=== PATIENT | male | born 1950 | race Caucasian/White ===

== ENCOUNTER 2016-11-30 01:50 | Inpatient (IN) | payer MEDICARE, BC ==
[2016-11-30 02:34] VITALS: BP 201/91
[2016-11-30] MEDS ORDERED: CARDIZEM30 MG PO (04:14)
[2016-11-30] MEDS ORDERED: CELEXA20 MG PO (04:14)
[2016-11-30] MEDS ORDERED: MIRALAX17 GM PO (04:17)
[2016-11-30] MEDS ORDERED: NEPHRO-VITE RX1 TAB PO (04:18)
[2016-11-30] MEDS ORDERED: COLACE100 MG PO (04:19)
[2016-11-30] MEDS ORDERED: ARANESP60 MCG/ML SC (04:22)
[2016-11-30] MEDS ORDERED: COREG 3.1253.125 MG PO (04:22)
[2016-11-30] MEDS ORDERED: ASCORBIC ACID500 MG PO (04:24)
[2016-11-30] MEDS ORDERED: PROTONIX40 MG PO (04:25)
[2016-11-30] MEDS ORDERED: HYDROCODON-ACE1 EAC7 PO (04:25)
[2016-11-30] MEDS ORDERED: DULCOLAX10 MG/SUPP RC (04:28)
[2016-11-30] MEDS ORDERED: TYLENOL ARTHRITIS PO (04:31)
[2016-11-30 06:16] LABS: BASOPHILS 0.2 % (0.0-2.0); HEMATOCRIT 37.5 % (42.0-54.0); IMMATURE GRANULOCYTES 0.4 % (0-5); LYMPHOCYTES 26.9 % (15-50); MCH 28.4 pg (26.0-34.0); MCV 88.9 fL (80.0-100.0); MEAN PLATELET VOLUME 9.5 fL (7.4-10.4); MONOCYTES 6.6 % (2-11); NEUTROPHILS 64.9 % (40-80); PLATELET COUNT 229 10x3/uL (130-400); RBC 4.22 10x6/uL (4.20-6.10); RDW 14.5 % (11.5-14.5); WBC 9.1 10x3/uL (4.8-10.8)
[2016-11-30 06:30] LABS: HEMOGLOBIN A1C 6.7 % (4.8-6.0)
[2016-11-30 07:00] LABS: ALBUMIN 3.4 g/dL (3.4-5.0); BILIRUBIN - TOTAL 0.4 mg/dL (0.2-1.3); CARBON DIOXIDE 25.9 mmol/L (21.0-32.0); CHOL - HDL RATIO 5.2 ratio (2.3-4.9); CREATININE - SERUM 5.3 mg/dL (0.6-1.3); POTASSIUM - SERUM 3.9 mmol/L (3.5-5.1); PROTEIN - SERUM 7.3 g/dL (6.4-8.2); THYROID STIMULATING HORMONE 2.11 uIU/mL (0.36-3.74)
[2016-11-30 08:00] VITALS: BP 140/82
[2016-11-30 10:24] VITALS: Ht 182.9 cm
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
--- NOTE | 2016-11-30 13:16 | NUR ---
DIALYSIS COORDINATOR: PATHWAYS: [facility] MON/MON/MON @ 2:00. CARMELITA ROMO.
--- NOTE | 2016-11-30 15:12 | NUR ---
WOUND CARE CONSULT: NOTED OPEN WOUND TO RIGHT HIP. PT STATES IT IS FROM A SURGERY 6 MONTHS AGO. WOUND MEASURES 5CM X 0.7CM X 3CM X 4.2CM FROM 12 TO 4 OCLOCK. THE WOUND BED IS RED AND BEEFY AND THERE IS NO ODOR. CURRENT TREATMENT IS KERLIX SATURATED WITH NORMAL SALINE LOOSELY PACKED IN WOUND. COVERED WITH DRY 4X4 AND WHITE BORDERED GAUZE. PT TOLERATED WELL. WOUND CARE WILL MONITOR.
[2016-11-30 21:16] VITALS: BP 148/76
--- NOTE | 2016-12-01 00:42 | NUR ---
B) Recieved in patient room with dialysis nurse, alert and oriented to self, cooperative with care and assessment, I) Administered perscribed medications, redirected and oriented as needed, R) medication compliant, unable to retain information, friendly and pleasantt, P) Continue plan of care.
[2016-12-01 06:14] LABS: RAPID PLASMA REAGIN Non Reactive (Non Reactive)
[2016-12-01 09:18] LABS: VITAMIN D 25 HYDROXY 23.6 ng/mL (30.0-100.0)
--- NOTE | 2016-12-01 09:48 | NUR ---
SW HAD VM TO CALL PT'S , ADRIANNA. SW ATTEMPTED TO RETURN PHONE CALL AND COULDN'T LEAVE MESSAGE BECAUSE VM WAS FULL.
--- NOTE | 2016-12-01 10:45 | NUR ---
B) PATIENT IS AWAKE AND ALERT, HE IS ORIENTED X3 AT THIS TIME, BUT HAS SOME CONFUSION, FOR EXAMPLE HE DID NOT KNOW WHERE TO GO TO THE BATHROOM. PATIENT IS POLITE, HE SAYS HE CAN NOT TELL ANY DIFFERENCE IN HOW HE FEELS FROM DIALYSIS YESTERDAY. PATIENT AMBULATES INDEP[ENDENTLY AND HE IS PARTICIPATORY IN GROUPS. I) PROVIDE PRESCRIBED MEDS. R) PATIENT IS COMPLIANT WITH MEDS. P) CONTINUE PLAN OF CARE.
[2016-12-01 11:02] VITALS: BP 127/58
[2016-12-01 12:17] LABS: FOLATE (FOLIC ACID) - SERUM >20.0 ng/mL (>3.0)
--- NOTE | 2016-12-01 12:31 | NUR ---
PATIENT'S FSBS 217, PATIENT RECEIVED 4 UNITS INSULIN PER MAR, SEE MAR.
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
[2016-12-01 20:23] VITALS: BP 136/65
--- NOTE | 2016-12-02 01:51 | NUR ---
B) Recieved patient in the day room, alert and oriented to [facility], calm and cooperative with care and assessment, I) Administerd perscribed medications, monitored for safety, R) Medication compliant, middle of the night awaking, redirected without difficulity, P) Continue plan of care.
[2016-12-02 07:01] LABS: BASOPHILS 0.3 % (0.0-2.0); EOSINOPHILS 1.2 % (0-7); HEMATOCRIT 36.9 % (42.0-54.0); HEMOGLOBIN 11.8 g/dL (13.5-17.5); IMMATURE GRANULOCYTES 0.3 % (0-5); LYMPHOCYTES 30.7 % (15-50); MCH 28.2 pg (26.0-34.0); MCV 88.1 fL (80.0-100.0); MEAN PLATELET VOLUME 9.7 fL (7.4-10.4); MONOCYTES 8.8 % (2-11); NEUTROPHILS 58.7 % (40-80); PLATELET COUNT 213 10x3/uL (130-400); RBC 4.19 10x6/uL (4.20-6.10); RDW 14.4 % (11.5-14.5); WBC 7.4 10x3/uL (4.8-10.8)
[2016-12-02 07:30] LABS: ANION GAP 17.9 mmol/L (8-16); CALCIUM 9.7 mg/dL (8.5-10.1); CARBON DIOXIDE 28.8 mmol/L (21.0-32.0); CREATININE - SERUM 6.8 mg/dL (0.6-1.3); PHOSPHOROUS 6.6 mg/dL (2.5-4.9); POTASSIUM - SERUM 3.7 mmol/L (3.5-5.1)
[2016-12-02 09:32] VITALS: BP 148/72
--- NOTE | 2016-12-02 09:50 | NUR ---
B) PATIENT IS AWAKE AND HE IS PLEASANT, AMBULATES INDEPENDENTLY. HE IS CONFUSED AND HE HAS NO RECALL OF HITTING ANYONE AT THE [facility] I) PROVIDE PRESCRIBED MEDS. R) PATIENT IS COMPLIANT WITH MEDS. P) CONTINUE PLAN OF CARE.
--- NOTE | 2016-12-02 16:30 | NUR ---
POST DIALYSIS VS TEMP 98.4, BP 147/56, P 84, R 18, HIRA FROM [facility] SAID 2 LITERS WERE REMOVED FROM PATIENT. HE IS DOING WELL, NO CONCERNS. PATIENT AMBULATED TO DAY ROOM UNASSISTED.
[2016-12-02 19:31] VITALS: BP 121/70
--- NOTE | 2016-12-02 20:30 | NUR ---
REPORT RECEIVED AND CARE ASSUMED. VERY PLEASANT AND COOPERATIVE. HE IS CONFUSED, AND ASKING WHERE HE IS. ASSESSMENT COMPLETED PER FLOW SHEET. WILL CONTINUE PLAN OF CARE AND MONITOR FOR SAFETY.
--- NOTE | 2016-12-03 03:46 | PN ---
PATIENT:KIM LEMUS MEDICAL RECORD: [id number] LOCATION:[facility] ADMISSION DATE: 11/30/16 PROGRESS NOTE DATE OF SERVICE: 12/02/2016 SUBJECTIVE: No new complaint. OBJECTIVE: The patient has continued to be very cooperative. He is receiving hemodialysis today. He is sedated at times, but otherwise alert and pleasant. On exam, mood is euthymic. Affect is bland. Speech is rather terse. Content of thought focuses only on somatic concerns. Sensorium shows no change. ASSESSMENT: No change in diagnosis. PLAN: 1. Continue current medication. 2. Continue supportive therapy. TRANSINT:[id number] Voice Confirmation ID: [id number] DOCUMENT ID: [id number] LYNDSEY JONES III, MD at 0346 CC: [id number] DICTATION DATE: 12/02/16 1254 SKIN LIFTER BACON: 12/02/16 1842 ADM IN [facility] [address] [place] [address]
[2016-12-03 08:09] VITALS: BP 155/69
--- NOTE | 2016-12-03 14:54 | PN ---
PATIENT:KIM LEMUS MEDICAL RECORD: [id number] LOCATION:[facility] ADMISSION DATE: 11/30/16 PROGRESS NOTE DATE OF SERVICE: 12/01/2016 SUBJECTIVE: The patient's case was discussed with staff. He has no new complaint. OBJECTIVE: The patient denies intent to harm himself or others. He generally tolerates his medicines well. ASSESSMENT: No change in diagnoses. PLAN: Current medicines have been reviewed and will be maintained. Long-term prognosis is guarded. Brief supportive and educational interventions were made. This patient is extremely confused. He clearly has a dementia that is advanced. He is going to be tested by Dr. Florencia Corea by every expectation unfortunately that he will score in the severe range. Compounding his problem is the fact that he cannot care for himself, requires insulin and is a dialysis patient. This patient desperately needs 87-gkjt-y-day supervision. I understand his is ill and undergoing chemotherapy, but he has 2 daughters. I do not know if they can provide for him adequately. He needs 30-iecf-y-day supervision and at this point if the family cannot care for him, the least restrictive environment would be a skilled nursing. Unfortunately, his prognosis is extremely poor given how advanced his dementia is and how relatively young he is. TRANSINT:[id number] Voice Confirmation ID: [id number] DOCUMENT ID: [id number] CHRISTOPHER GANNON MD at 1454 CC: [id number] DICTATION DATE: 12/01/16 1511 BOOKBINDER CHIEF: 12/01/16 2018 ADM IN [facility] [address] [place] [address]
--- NOTE | 2016-12-03 18:30 | NUR ---
SEE ASSESSMENT FLOW SHEET.NO SIGNS OF AGGRESSION TODAY.CONTINUE WITH PLAN OF CARE,MONITOR FOR SAFETY AND CHANGES.
[2016-12-03 19:30] VITALS: BP 126/67
--- NOTE | 2016-12-03 21:30 | NUR ---
RECEIVED IN DAYROOM SITTING IN CHAIR. CALM AND COOPERATIVE WITH CARE AND STAFF. SHIFT ASSESSMENT COMPLETED PER FLOW SHEET. ADMINISTER PRESCRIBED MEDS. COMPLIANT WITH MEDICATIONS. VERY CONFUSED TO WHERE HE IS AND WHY HE IS HERE. WILL CONTINUE CURRENT PLAN OF CARE AND MONITOR FOR SAFETY.
[2016-12-04 06:52] LABS: BASOPHILS 0.6 % (0-2); EOSINOPHILS 1.4 % (0-7); HEMATOCRIT 35.2 % (42.0-54.0); HEMOGLOBIN 11.7 g/dL (13.5-17.5); IMMATURE GRANULOCYTES 0.2 % (0-5); LYMPHOCYTES 33.5 % (15-50); MCH 28.8 pg (26.0-34.0); MCHC 33.2 g/dL (31.0-37.0); MCV 86.7 fL (80.0-100.0); MEAN PLATELET VOLUME 9.4 fL (7.4-10.4); MONOCYTES 7.9 % (2-11); NEUTROPHILS 56.4 % (40-80); PLATELET COUNT 200 10x3/uL (130-400); RBC 4.06 10x6/uL (4.20-6.10); RDW 14.4 % (11.5-14.5); WBC 8.1 10x3/uL (4.8-10.8)
[2016-12-04 07:03] LABS: ANION GAP 19.6 mmol/L (8-16); CALCIUM 9.5 mg/dL (8.5-10.1); POTASSIUM - SERUM 3.6 mmol/L (3.5-5.1)
--- NOTE | 2016-12-04 07:30 | NUR ---
RIGHT HIP INCISION WOUND REPACKED WITH SALINE WET-TO-DRY KERLEX, COVERED WITH 4X4 GUAZE, THEN COVERED WITH WHITE BORDER GUAZE.
[2016-12-04 07:54] VITALS: BP 139/71
[2016-12-04 19:30] VITALS: BP 157/60
--- NOTE | 2016-12-04 19:51 | NUR ---
RECEIVED IN DAYROOM. SITTING IN CHAIR WITH PEERS AT HIS SIDE, CALM AND COOPERATIVE WITH CARE AND ASSESSMENTS. NO SIGNS OF AGGRESSION. NOT SOCIALIZING WITH PEERS. CONTINUES TO SIT QUIETLY IN CHAIR. CONTINUE PLAN OF CARE
--- NOTE | 2016-12-04 21:07 | NUR ---
Patient is dayroom, resting with eyes closed. Oriented to self only, know he is in a hospital. Patient reoriented. Calm, and cooperative. Continue to monitor, continue plan of care.
[2016-12-05 08:02] VITALS: BP 150/65
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
[2016-12-05] MEDS ORDERED: NAMENDA5 MG PO (13:42)
[2016-12-05] MEDS ORDERED: LANTUS INSULIN10 ML SC (13:43)
[2016-12-05] MEDS ORDERED: VITAMIN D5000 UNIT PO (13:43)
[2016-12-05 19:30] VITALS: BP 125/54
--- NOTE | 2016-12-05 20:10 | NUR ---
RECEIVED IN DINING ROOM. SITTING AT TABLE WITH PEERS AT HIS SIDE. CALM AND COOPERATIVE WITH CARE AND ASSESSMENT. NO SIGNS OF AGGRESSION. DRESSING TO RIGHT HIP INTACT. ENCOURAGE TO EXPRESS NEEDS. CONTINUES TO SIT QUIETLY IN DINING AREA. CONTINUE PLAN OF CARE
[2016-12-06 06:55] LABS: BASOPHILS 0.6 % (0-2); EOSINOPHILS 1.1 % (0-7); HEMATOCRIT 34.1 % (42.0-54.0); HEMOGLOBIN 11.2 g/dL (13.5-17.5); IMMATURE GRANULOCYTES 0.8 % (0-5); LYMPHOCYTES 36.3 % (15-50); MCH 28.1 pg (26.0-34.0); MCHC 32.8 g/dL (31.0-37.0); MCV 85.7 fL (80.0-100.0); MEAN PLATELET VOLUME 9.6 fL (7.4-10.4); MONOCYTES 10.7 % (2-11); NEUTROPHILS 50.5 % (40-80); PLATELET COUNT 177 10x3/uL (130-400); RBC 3.98 10x6/uL (4.20-6.10); RDW 14.2 % (11.5-14.5); WBC 7.2 10x3/uL (4.8-10.8)
[2016-12-06 07:00] VITALS: BP 135/54
[2016-12-06 07:10] LABS: ANION GAP 20.2 mmol/L (8-16); CALCIUM 9.3 mg/dL (8.5-10.1); CARBON DIOXIDE 23.9 mmol/L (21.0-32.0); CREATININE - SERUM 7.2 mg/dL (0.6-1.3); PHOSPHOROUS 6.4 mg/dL (2.5-4.9); POTASSIUM - SERUM 4.1 mmol/L (3.5-5.1)
--- NOTE | 2016-12-06 10:02 | NUR ---
SW SET PT UP WITH [facility] AT HOME. SW SPOKE WITH PT'S ABOUT DISCHARGE TODAY. PT'S VERBALIZED UNDERSTANDING AND STATED PU TIME WILL BE AT 1500.
--- NOTE | 2016-12-06 13:53 | PN ---
PATIENT:KIM LEMUS MEDICAL RECORD: [id number] LOCATION:[facility] ADMISSION DATE: 11/30/16 PROGRESS NOTE DATE OF SERVICE: 12/05/2016 SUBJECTIVE: The patient's case was discussed with staff. He is in good behavioral control with limited insight about his condition. He does tolerate his medicines reasonably well. ASSESSMENT: No change in diagnoses. PLAN: Current medicines have been reviewed and will be maintained. I anticipate that he can be transitioned out of the hospital tomorrow. He is going to go home and his and home health are going to care for him. This is contrary to my recommendation. I think he does require inpatient senior living care given the level of skilled needs that he requires; however, he and his family do not wish to do this. Even though is contrary to my recommendation, it does not rise to the level of being so wildly inappropriate that I need to report this to the adult protective services agency at this point. His long-term prognosis is guarded. He does have a degenerative disease. TRANSINT:[id number] Voice Confirmation ID: [id number] DOCUMENT ID: [id number] CHRISTOPHER GANNON MD at 1353 CC: [id number] DICTATION DATE: 12/05/16 1348 PERSONAL PROTECTION SPECIALIST: 12/05/16 1920 ADM IN [facility] [id number] [place] [address]
--- NOTE | 2016-12-06 16:32 | NUR ---
HAS BEEN VERY COOPERATIVE TODAY.EXCITED ABOUT GOING HOME.COMPLIANT WITH MEDS AMB IN UNIT.DISCHARGE TEACHING DONE WITH HIM AND ALL QUESTIONS ANSWERED AT 1500.PRESCRIPTIONS CALLED TO [facility] AND SPOUSE NOTIFIED PRESCRIPTIONS CALLED SO SHE CAN PICK THEM UP BEFORE COMMING AFTER HIM.DISCHARGE TEACHING DONE WITH SPOUSE AND DAUGHTER INCLUDING INSTRUCTED ON HOW TO DO DRESSING CHANGE DAILY.DISCHARGED HOME WITH SPOUSE AND DAUGHTER ,AMB TO CAR WITH THIS NURSE AT 1615.HAS ALL PERSONAL ITEMS AND INSTRUCTIONS.
--- NOTE | 2016-12-07 16:51 | PN ---
PATIENT:KIM LEMUS MEDICAL RECORD: [id number] LOCATION:[facility] ADMISSION DATE: 11/30/16 PROGRESS NOTE DATE OF SERVICE: 12/06/2016 SUBJECTIVE: The patient's case was discussed with staff. He has no new complaint. OBJECTIVE: The patient is in good behavioral control with limited insight about his condition. He was tested by Dr. Florencia Corea and scored 9/30 on the Yao Cognitive Assessment scale. He clearly is severe in his impairment based on the testing and the testing is consistent with what I observe from him clinically. He is in need of 24-hour daycare. He has not been aggressive and will be transitioned out of the hospital today. ASSESSMENT: No change in diagnoses. PLAN: The patient is going to go home with his . She insists upon taking him home and she has been advised that is contrary to my recommendation and the recommendation of this treatment team. She has been given advise about managing him and securing the home to make it safe. She has also been referred to support group. This is an inappropriate setting for him to receive care. I do not believe that she can fully accomplish everything that she says she will do for him; however, it is not inappropriate at a level that require reporting this to the authorities. She has been given information about how to have him placed if she discovers that she really cannot care for him as she thinks she can. At this point, he is not acutely dangerous. His long-term prognosis is guarded and given his level of impairment there are certainly are no guarantees that he will not become confused, agitated or aggressive at home. Follow up is to be with his primary care physician. His long-term prognosis is guarded. TRANSINT:[id number] Voice Confirmation ID: [id number] DOCUMENT ID: [id number] CHRISTOPHER GANNON MD at 1651 CC: [id number] DICTATION DATE: 12/06/16 1403 POLYMERIZATION OVEN TENDER: 12/06/162027 DIS IN 12/06/16 [facility] [address] [place] [address]
== END 2016-12-06 16:15 | disposition home health service (06) | DRG 947 ==
LOC: EDBD 01:50 → D.PSYCH 01:50
PROVIDERS: Internal Medicine Nephrology; ADMIT Psychiatry & Neurology Psychiatry
PROC: 5A1D60Z (ICD-10-PCS; principal; 2016-11-30)
DX: R41.0 Disorientation, unspecified (principal); N18.6 End stage renal disease; F01.51 Vascular dementia, unspecified severity, with behavioral disturbance; I12.0 Hypertensive chronic kidney disease with stage 5 chronic kidney disease or end stage renal disease; E11.22 Type 2 diabetes mellitus with diabetic chronic kidney disease; Z99.2 Dependence on renal dialysis; Z85.038 Personal history of other malignant neoplasm of large intestine; K59.00 Constipation, unspecified; E55.9 Vitamin D deficiency, unspecified; S71.101A Unspecified open wound, right thigh, initial encounter; X58.XXXA Exposure to other specified factors, initial encounter